=== PATIENT | female | born 1965 | race Two or more races ===

== ENCOUNTER 2019-09-03 22:30 | Emergency (ER) | payer MEDICAID ==
[~2019-09-03] VITALS: Ht 152.4 cm; Wt 80.9 kg
[2019-09-03 22:51] LABS: GLUCOSE,POINT OF CARE 162 MG/DL (70-110)
[2019-09-03] MEDS ORDERED: LISI10TA7 PO (22:59)
[2019-09-03] MEDS ORDERED: AMLO2.5T29 PO (22:59)
[2019-09-03] MEDS ORDERED: METO-408 PO (22:59)
[2019-09-03] MEDS ORDERED: METF-844 PO (22:59)
[2019-09-03 23:08] LABS: BASOPHILS % (AUTO) 0.5 % (0.0-2.0); EOSINOPHILS % (AUTO) 1.6 % (1.0-6.0); HEMATOCRIT 32.7 % (36-46); HEMOGLOBIN 10.8 g/dL (12.0-16.0); LYMPHOCYTES # (AUTO) 2.7 K/uL (1.0-4.8); LYMPHOCYTES % (AUTO) 29.7 % (22.0-44.0); MEAN CORPUSCULAR HEMOGLOBIN 28.8 pg (26.0-34.0); MEAN CORPUSCULAR HGB CONC 33.1 G/dL (31.0-37.0); MEAN CORPUSCULAR VOLUME 87 fL (80-100); MONOCYTES # (AUTO) 0.8 K/uL (0.1-1.0); NEUTROPHILS # (AUTO) 5.4 K/uL (1.8-7.7); NEUTROPHILS % (AUTO) 59.2 % (40.0-70.0); PLATELET COUNT (AUTO) 293 K/uL (150-450); RED BLOOD CELL COUNT(AUTO) 3.76 MIL/uL (4.00-5.20)
[2019-09-03 23:21] LABS: ANION GAP 9 mmol/L (8-16); CALCIUM, TOTAL 8.5 mg/dL (8.8-10.5); CARBON DIOXIDE 27 mmol/L (22-29); CHLORIDE 107 mmol/L (98-107); CREATININE 0.81 mg/dL (0.60-1.30); GLOMERULAR FILTR. RATE CALC > 60 mL/min (>60); GLUCOSE,RANDOM 152 mg/dL (70-110); POTASSIUM 3.9 mmol/L (3.5-5.1); SODIUM SERUM 143 mmol/L (136-145); UREA NITROGEN, BLOOD 17 mg/dL (7-18)
[2019-09-03 23:27] LABS: ALANINE AMINOTRANSFERASE 27 U/L (12-78); ALBUMIN 3.3 g/dL (3.4-5.0); ALKALINE PHOSPHATASE 123 U/L (46-116); ASPARTATE AMINOTRANSFERASE 19 U/L (15-37); BILIRUBIN,TOTAL 0.3 mg/dL (0.1-1.0); TOTAL PROTEIN, SERUM 7.4 g/dL (6.4-8.2)
[2019-09-03 23:35] LABS: B-TYPE NATRIURETIC PEPTIDE 80 pg/mL (0-100)
[2019-09-04] MEDS ORDERED: FLUORESCEIN SODIUM 1 MG STRIP OU ONE
[2019-09-04 03:08] VITALS: BP 147/81
== END 2019-09-04 03:05 | disposition home or self-care (01) ==
LOC: EMS 22:30
DX: R51 Headache (principal); R06.00 Dyspnea, unspecified; H53.8 Other visual disturbances; R06.02 Shortness of breath; F41.9 Anxiety disorder, unspecified; E11.9 Type 2 diabetes mellitus without complications; E78.00 Pure hypercholesterolemia, unspecified; I10 Essential (primary) hypertension; Z79.899 Other long term (current) drug therapy; Z79.84 Long term (current) use of oral hypoglycemic drugs
CPT/HCPCS: 70450; 93005